=== PATIENT | female | born 1980 | race American Indian/Alaskan Native ===

== ENCOUNTER 2019-03-19 18:30 | Emergency (ER) | payer SELFPAY ==
[2019-03-19 19:58] VITALS: BP 131/80
--- NOTE | 2019-03-19 20:01 | Emergency Department Report ---
ED ENT HPI - General Chief complaint: Earache Stated complaint: RT SIDE FACE PAIN Time Seen by Provider: 03/19/19 19:56 Source: patient Mode of arrival: Ambulatory Limitations: No Limitations - History of Present Illness Initial comments: This is a 38 y.o. F. that presents to the ER with right ear pain for 3 days. Patient reports muffled hearing started today. States she applied tea tree oil with worsening symptoms. Patient states she was diagnosed with swimmers ear by PCP a few weeks ago. She didn't put cotton in her ear while washing her hair a few days ago and symptoms started. Patient denies fever, cough, chills, chest pain, otorrhea. MD complaint: ear pain (right) Onset/Timin Location: R ear Severity: severe Severity scale (0 -10): 10 Quality: other (throbbing) Consistency: constant Improves with: none Worsens with: none Context- Ear: other (otitis externa) Associated Symptoms: hearing loss. denies: fever, cough, gum swelling, toothache, pain with swallowing, sore throat, tinnitus, discharge from ear, rhinorrhea - Related Data Previous Rx's Medication Instructions Recorded Last Taken Type Amoxicillin [Trimox CAP] 500 mg PO BID #20 capsule 03/19/19 Unknown Rx traMADol [Ultram 50 MG tab] 50 mg PO Q6HR PRN #12 tablet 03/19/19 Unknown Rx Allergies Allergy/AdvReac Type Severity Reaction Status Date / Time latex AdvReac Hives Verified 03/19/19 18:39 ED Dental HPI - General Chief complaint: Earache Stated complaint: RT SIDE FACE PAIN Time Seen by Provider: 03/19/19 19:56 Source: patient Mode of arrival: Ambulatory Limitations: No Limitations - Related Data Previous Rx's Medication Instructions Recorded Last Taken Type Amoxicillin [Trimox CAP] 500 mg PO BID #20 capsule 03/19/19 Unknown Rx traMADol [Ultram 50 MG tab] 50 mg PO Q6HR PRN #12 tablet 03/19/19 Unknown Rx Allergies Allergy/AdvReac Type Severity Reaction Status Date / Time latex AdvReac Hives Verified 03/19/19 18:39 ED Review of Systems ROS: Stated complaint: RT SIDE FACE PAIN Other details as noted in HPI Constitutional: denies: chills, fever ENT: ear pain (right ear). denies: throat pain Respiratory: denies: cough, shortness of breath, wheezing Cardiovascular: denies: chest pain, palpitations Gastrointestinal: denies: abdominal pain, nausea, diarrhea Skin: denies: rash, lesions Neurological: denies: headache, weakness, paresthesias Psychiatric: denies: anxiety, depression ED Past Medical Hx - Past Medical History Previous Medical History?: Yes Hx Hypertension: Yes Additional medical history: HYPOTHYROIDISM - Surgical History Past Surgical History?: No - Medications Home Medications: Home Medications Medication Instructions Recorded Confirmed Last Taken Type Amoxicillin [Trimox CAP] 500 mg PO BID #20 capsule 03/19/19 Unknown Rx traMADol [Ultram 50 MG tab] 50 mg PO Q6HR PRN #12 tablet 03/19/19 Unknown Rx ED Physical Exam - General Limitations: No Limitations General appearance: alert, in no apparent distress, obese - ENT ENT exam: Present: normal orophraynx, mucous membranes moist. Absent: TM's normal bilaterally (erythematous and bulging right TM, pinna and tragus tenderness) - Neck Neck exam: Present: normal inspection - Respiratory Respiratory exam: Present: normal lung sounds bilaterally. Absent: respiratory distress - Cardiovascular Cardiovascular Exam: Present: regular rate, normal rhythm. Absent: systolic murmur, diastolic murmur, rubs, gallop - Neurological Exam Neurological exam: Present: alert, oriented X3, normal gait - Psychiatric Psychiatric exam: Present: normal affect, normal mood - Skin Skin exam: Present: warm, dry, intact, normal color. Absent: rash ED Course Vital Signs 03/19/19 19:57 Temperature 98.7 F Pulse Rate 94 H Respiratory 17 Rate Blood Pressure 131/80 O2 Sat by Pulse 100 Oximetry ED Medical Decision Making - Medical Decision Making Patient is stable and was examined by me. Erythematous and bulging TM on right ear. Patient's clinical and physical exam features are most consistent with otitis media. Start amoxicillin and tramadol. Follow-up with a PCP in 3-5 days or if symptoms worsen and continue return to emergency room as soon as possible. At time of discharge, the patient does not seem toxic or ill in appearance. No acute signs of distress noted. She agree with discharge treatment plan of care. No further questions noted by the patient. Critical care attestation.: If time is entered above; I have spent that time in minutes in the direct care of this critically ill patient, excluding procedure time. ED Disposition Clinical Impression: Otalgia of right ear Otitis media Qualifiers: Otitis media type: serous Chronicity: acute Laterality: right Recurrence: non- recurrent Qualified Code(s): H65.01 - Acute serous otitis media, right ear Disposition: TO HOME OR SELFCARE Is pt being admited?: No Condition: Stable Instructions: Otitis Media (ED) Prescriptions: Amoxicillin [Trimox CAP] 500 mg PO BID #20 capsule traMADol [Ultram 50 MG tab] 50 mg PO Q6HR PRN #12 tablet PRN Reason: Pain Referrals: [facility] [Outside] - 3-5 Days [facility] [Outside] - 3-5 Days [facility] [Outside] - 3-5 Days Time of Disposition: 21:01
== END 2019-03-19 21:10 | disposition home or self-care (01) ==
LOC: ED 18:30
DX: H66.91 Otitis media, unspecified, right ear (principal); I10 Essential (primary) hypertension; E03.9 Hypothyroidism, unspecified; Z79.899 Other long term (current) drug therapy; Z91.040 Latex allergy status
CPT/HCPCS: 99281